=== PATIENT | male | born 1970 ===

== ENCOUNTER 2024-05-27 05:22 | Day surgery (SDC) | payer OTHER ==
[~2024-05-27] VITALS: Ht 170.2 cm; Wt 77.1 kg
[2024-05-27] MEDS ORDERED: CEFTRIAXONE SODIUM 2,000 MG VIAL IV SCH (07:45)
[2024-05-27] MEDS ORDERED: LIDOCAINE HCL 1%/EPINEPHRINE 20ML VIAL IJ ONE (07:45)
[2024-05-27] MEDS ORDERED: METRONIDAZOLE/SODIUM CHLORIDE 500 MG/100 ML PIGGYBACK IV SCH (07:45)
[2024-05-27] MEDS ORDERED: DIBUCAINE 30 GM TUBE RECTAL ONE (07:45)
[2024-05-27] MEDS ORDERED: BUPIVACAINE HCL 30 ML VIAL IJ ONE (07:45)
[2024-05-27] MEDS ORDERED: POVIDONE-IODINE 118 ML BOTT TOP ONE (07:45)
[2024-05-27] MEDS ORDERED: HEMOSTATIC MATRIX 1 KIT KIT TOP ONE (07:45)
[2024-05-27] MEDS ORDERED: TAMSULOSIN HCL 0.4 MG CAP PO STA (08:28)
[2024-05-27] MEDS ORDERED: RECTICARE30 GM TOP (08:29)
[2024-05-27] MEDS ORDERED: PERCOCET 5-3251 EACH PO (08:29)
[2024-05-27] MEDS ORDERED: MORPHINE SULFATE 4 MG/ML VIAL IV ONE (13:15)
== END 2024-05-27 14:55 | disposition home or self-care (01) ==
LOC: CIR.AMB 05:22
PROVIDERS: ATTEND Surgery
DX: K64.2 Third degree hemorrhoids (principal); K64.4 Residual hemorrhoidal skin tags; K64.3 Fourth degree hemorrhoids; K60.2 Anal fissure, unspecified